=== PATIENT | male | born 1950 | race Caucasian/White ===

== ENCOUNTER 2016-08-03 01:33 | Day surgery (SDC) | payer MEDICARE ==
[~2016-08-03] VITALS: Ht 186.7 cm; Wt 106.0 kg
[~2016-08-03 01:33] MED LIST: AMLO5TAB2 PO; HYDR25TA4 PO; LOSA100T29 PO
[2016-08-03] MEDS ORDERED: 0.9% Sodium Chloride 1,000 ML IV SCH (06:00)
[2016-08-03] MEDS ORDERED: fentaNYL-PF 50 mCg/mL 2 mL Inj IVPUSH PRN (06:00)
[2016-08-03] MEDS ORDERED: Sodium Chloride LOK Flush 10 mL Syringe IV PRN (06:00)
[2016-08-03 07:53] VITALS: BP 141/95; PULSE 90; RESP 17; O2SAT 94
[2016-08-03 09:25] VITALS: BP 114/74; PULSE 82; RESP 16; O2SAT 97
[2016-08-03 09:34] VITALS: BP 104/68; PULSE 80; RESP 16; O2SAT 94
[2016-08-03 09:44] VITALS: BP 104/68; PULSE 77; RESP 16; O2SAT 90
[2016-08-03 09:54] VITALS: BP 101/72; PULSE 79; RESP 16; O2SAT 93
--- NOTE | 2016-08-03 20:29 | ENDO ---
[address] [address] ENDOSCOPY PROCEDURE PATIENT: HIPOLITO OCAMPO : 1950 MR#: [id number] ADMIT: 08/03/2016 JOB ID: [id number] DATE OF SERVICE: 08/03/2016 PROCEDURE: Colonoscopy. INDICATIONS: A 66-year-old male who reports for colon cancer screening. EQUIPMENT: PCF H 180 AL. SEDATION: 4 mg Versed and 50 mcg fentanyl. COMPLICATIONS: None identified. BOWEL PREP: Fair. Adequate exam. PROCEDURE INFORMATION: After the risks and benefits were explained, written and verbal informed consent was obtained, and the patient was brought into the endoscopy suite and placed into the left lateral decubitus position. Sedation was achieved as above. A digital rectal examination accomplished. No significant pathology appreciated. The scope was introduced into the rectum and advanced under direct visualization to the level of the cecum, as identified by the appendiceal orifice and ileocecal valve. The scope was slowly withdrawn to carefully examine the mucosa for any defects or lesions. Multiple direct views were made through the dentate line for exclusion of pathology. The colon was decompressed, the scope removed from the patient, who tolerated the procedure well. FINDINGS: No significant polyps, mass lesions, or inflammatory features identified throughout. Some mild diverticulosis was seen in the left and mid colon. ENDOSCOPIC DIAGNOSIS: Diverticulosis. RECOMMENDATIONS: Repeat colonoscopy in 10 years' time, sooner should symptoms warrant.
== END 2016-08-03 23:59 | disposition home or self-care (01) ==
LOC: END 01:33
PROVIDERS: ATTEND Internal Medicine Gastroenterology
DX: Z12.11 Encounter for screening for malignant neoplasm of colon (principal); K57.30 Diverticulosis of large intestine without perforation or abscess without bleeding; I10 Essential (primary) hypertension; Z87.891 Personal history of nicotine dependence
CPT/HCPCS: G0121; G0500; J7030